=== PATIENT | male | born 1985 | race African-American/Black ===

== ENCOUNTER 2018-12-11 20:59 | Emergency (ER) | payer SELFPAY ==
[2018-12-11 21:17] VITALS: BP 147/73; PULSE 82; TEMP 98.3; BMI 38.7
--- NOTE | 2018-12-12 01:29 | PDOC ---
Documentation entered by Jason Sanchez SCRIBE, acting as scribe for Miriam Peres MD. Miriam Peres MD: This documentation has been prepared by the colbyeDaniel Aiswarya, SCRIBE, under my direction and personally reviewed by me in its entirety. I confirm that the documentation accurately reflects all work, treatment, procedures, and medical decision making performed by me. History of Present Illness - General Chief Complaint: Lightheaded Stated Complaint: LIGHTHEADED Time Seen by Provider: 12/11/18 21:02 - History of Present Illness Initial Comments: 12/11/18 22:56 The patient is a 33 year old male, with no significant PMH, who presents to the emergency department for evaluation of a possible panic attack that occurred a few hours ago. The patient states he was coming back from visiting his dad when he felt a sudden of increased warmth, heart palpitations and anxiety that lasted for about 5 minutes. Patient states he is currently under alot of stress ( new job, father being sick and new baby) and reports episode may be related to that. The patient denies chest pain, shortness of breath, headache and dizziness. Denies fever, chills, nausea, vomit, diarrhea and constipation. Denies dysuria, frequency, urgency and hematuria. Allergies: NKDA Past surgical history: None reported Social history: None reported PCP: None reported Past History - Past Medical History Allergies/Adverse Reactions: Allergies Allergy/AdvReac Type Severity Reaction Status Date / Time No Known Allergies Allergy Verified 12/11/18 21:01 Home Medications: Ambulatory Orders NK [No Known Home Medication] 12/11/18 COPD: No - Suicide/Smoking/Psychosocial Hx Smoking History: Never smoked Hx Alcohol Use: Yes (SOCIAL) Drug/Substance Use Hx: No Review of Systems - Review of Systems Able to Perform ROS?: Yes Comments:: 12/11/18 22:56 GENERAL/CONSTITUTIONAL: No fever or chills. No weakness. HEAD, EYES, EARS, NOSE AND THROAT: No change in vision. No ear pain or discharge. No sore throat. CARDIOVASCULAR: No chest pain or shortness of breath. RESPIRATORY: No cough, wheezing, or hemoptysis. GASTROINTESTINAL: No nausea, vomiting, diarrhea or constipation. GENITOURINARY: No dysuria, frequency, or change in urination. MUSCULOSKELETAL: No joint or muscle swelling or pain. No neck or back pain. SKIN: No rash NEUROLOGIC: No headache, vertigo, loss of consciousness, or change in strength/ sensation. ENDOCRINE: No increased thirst. No abnormal weight change. HEMATOLOGIC/LYMPHATIC: No anemia, easy bleeding, or history of blood clots. ALLERGIC/IMMUNOLOGIC: No hives or skin allergy. *Physical Exam - Vital Signs Last Vital Signs Temp Pulse Resp BP Pulse Ox 98.3 F 82 16 147/73 97 12/11/18 21:01 12/11/18 21:01 12/11/18 21:01 12/11/18 21:01 12/11/18 21:01 - Physical Exam Comments: 12/11/18 22:56 GENERAL: Awake, alert, and fully oriented, in no acute distress HEAD: No signs of trauma EYES: PERRLA, EOMI, sclera anicteric, conjunctiva clear ENT: Auricles normal inspection, hearing grossly normal, nares patent, oropharynx clear without exudates. Moist mucosa NECK: Normal ROM, supple, no lymphadenopathy, JVD, or masses LUNGS: Breath sounds equal, clear to auscultation bilaterally. No wheezes, and no crackles HEART: Regular rate and rhythm, normal S1 and S2, no murmurs, rubs or gallops ABDOMEN: Soft, nontender, normoactive bowel sounds. No guarding, no rebound. No masses EXTREMITIES: Normal range of motion, no edema. No clubbing or cyanosis. No cords, erythema, or tenderness NEUROLOGICAL: Cranial nerves II through XII grossly intact. Normal speech, normal gait SKIN: Warm, Dry, normal turgor, no rashes or lesions noted. ED Treatment Course - ADDITIONAL ORDERS Additional order review: Laboratory Results 12/11/18 21:20 POC Glucometer 129 12/11/18 21:20 POC Glucometer 129 Medical Decision Making - Medical Decision Making As noted above, this otherwise healthy 33-year-old man presents with a several minute episode of "not feeling right" as he was a passenger in a car driving home from visiting his father in rehabilitation (admitted there after severe illness). He cannot clearly describe his feeling other than feeling somewhat anxious and dysphoric. He had no pain or shortness of breath and episode resolved spontaneously. No other abnormal feelings occurred today; he has been eating and drinking normally. No use of sedatives, stimulants or other recreational drugs. He has had no new supplements/vitamins recently. He admits , as noted above, that he is under a marked amount of stress related to work ( new, stress filled job),his father's illness and a new baby at home. He has no previous history of anxiety or panic attacks. He states that his sleep time has been truncated recently. Exam, as noted is normal. Twelve-lead electrocardiogram was performed: Normal sinus rhythm at 83 bpm; axis , intervals, waveforms are all normal. No evidence of acute ST or T-wave abnormalities. No acute cardiac arrhythmia noted. Random fingerstick glucose: 127 Clinical presentation most consistent with mild anxiety episode related to multiple stressors and probable sleep deprivation. Patient was reassured that he is neither hyper nor hypoglycemic and that his electrocardiogram was normal. Techniques for stress reduction discussed with him. He has no general medical doctor and he will be referred to the [facility] medical group for follow-up. He should call the office tomorrow and arrange for appointment within the next several days. She return to the ER if he has persistent, severe symptoms. *DC/Admit/Observation/Transfer Diagnosis at time of Disposition: Anxiety - Discharge Dispostion Disposition: HOME Condition at time of disposition: Stable - Referrals Referrals: [facility] [Provider Group] - Patient Instructions Printed Discharge Instructions: DI for Anxiety -- Adult Additional Instructions: Drink plenty of fluids and eat regular meals Try to get at least 6-7 hours of sleep each night Avoid caffeinated beverages/foods Follow-up with general medical doctor ([facility]) call office tomorrow to arrange appointment Return to ER if you have prolonged or severe symptoms - Post Discharge Activity
--- NOTE | 2018-12-12 11:19 | EKG ---
Test Reason : Blood Pressure : / mmHG Vent. Rate : 083 BPM Atrial Rate : 083 BPM P-R Int : 164 ms QRS Dur : 076 ms QT Int : 348 ms P-R-T Axes : 046 087 045 degrees QTc Int : 408 ms NORMAL SINUS RHYTHM NORMAL ECG NO PREVIOUS ECGS AVAILABLE Confirmed by FRANK NORIEGA MD ([id number]) on 12/12/2018 11:19:23 AM Referred By: Gideon QUEVEDO Confirmed By:FRANK NORIEGA MD
== END 2018-12-11 22:45 | disposition home or self-care (01) ==
LOC: FER 20:59
DX: F41.9 Anxiety disorder, unspecified (principal)
CPT/HCPCS: 82962; 93005; 99282-25